=== PATIENT | male | born 1950 | race Hispanic/Latino ===

== ENCOUNTER 2025-06-16 09:03 | Emergency (ER) | payer OTHER ==
[~2025-06-16] VITALS: Ht 160 cm; Wt 69.4 kg
[2025-06-16] MEDS ORDERED: ASPIRIN 325 MG TAB ONE (10:38)
[2025-06-16] MEDS ORDERED: ASPIRIN 81 MG CHEW TAB ONE (10:41)
[2025-06-16] MEDS: ASPIRIN 81 MG CHEW TAB PO ONE (10:48)
[2025-06-16 13:50] VITALS: PULSE 61; RESP 18; TEMP 98.4; O2SAT 99
== END 2025-06-16 13:53 | disposition home or self-care (01) ==
LOC: FSED 09:36
DX: R20.2 Paresthesia of skin (principal); M54.12 Radiculopathy, cervical region; R94.31 Abnormal electrocardiogram [ECG] [EKG]
CPT/HCPCS: 71046; 72125; 99284